=== PATIENT | female | born 1950 | race Two or more races ===

== ENCOUNTER 2023-04-25 02:10 | Inpatient (IN) | payer MEDICARE, OTHER ==
[~2023-04-25] VITALS: Ht 195.6 cm; Wt 50.0 kg
[2023-04-25] VITALS (14 sets, daily range): BP systolic 97–260; BP diastolic 70–156; PULSE 84–111; RESP 14–24; TEMP 98.7; O2SAT 93–100
[2023-04-25] MEDS ORDERED: hydrALAZINE HCL 20 MG/ML VL IV ONE (02:45)
[2023-04-25] MEDS ORDERED: LORazepam 2MG/ML-1ML VIAL ONE (03:23)
[2023-04-25] MEDS ORDERED: SUCCINYLCHOLINE CHLORIDE 20 MG/ML 10ML VIAL IV ONE ×2 (03:40→03:42)
[2023-04-25] MEDS ORDERED: ETOMIDATE (2MG/ML) 20ML VIAL IV ONE ×2 (03:40→03:41)
[2023-04-25] MEDS ORDERED: LORazepam 2MG/ML-1ML VIAL IV ONE (03:45)
[2023-04-25] MEDS ORDERED: PROPOFOL 100 ML IV ONE (03:47)
[2023-04-25] MEDS: PROPOFOL 100 ML IV SCH ×4 (04:00→23:23)
[2023-04-25 04:21] LABS: Hematocrit 35.4 % (36.0-46.0); Hemoglobin 11.7 g/dL (12.2-16.2); Mean Corpuscular Hemoglobin 30.5 pg (28.0-32.0); Mean Corpuscular Volume 92.6 fL (80.0-100.0); Red Blood Cells 3.83 10^6/uL (4.0-5.20); Red Cell Distribution Width 16.2 % (11.8-14.3); White Blood Cell 6.5 10^3/uL (4.4-10.8)
[2023-04-25 04:21] LABS: Base Excess -4.4 mmol/L (-2.0-2.0)
[2023-04-25 04:31] LABS: Basophils % (manual) 0 (0.0-2.0); Blast Cells 0; Metamyelocytes % 0; Myelocytes % 0; Promyelocytes % 0; Reactive Lymphocytes 0
[2023-04-25 04:33] LABS: Urine Bacteria NONE SEEN /hpf (None Seen); Urine Blood Negative /uL (Negative); Urine Clarity Clear (Clear); Urine Color Colorless (Yellow); Urine Protein, UAD TRACE (Negative); Urine Specific Gravity 1.008 (1.001-1.035); Urine Urobilinogen Normal (Negative); Urine WBC 1 /hpf (0 - 5); Urine pH 6.5 (5.0-8.0)
[2023-04-25 04:46] LABS: Albumin 3.3 g/dL (3.4-5.0); Calcium 8.4 mg/dL (8.5-10.1); Magnesium 1.9 mg/dL (1.6-2.6); Potassium 3.5 mmol/L (3.5-5.1)
[2023-04-25 04:51] LABS: Bilirubin, Total 0.2 mg/dL (0.2-1.0); Total Protein 6.6 g/dL (6.4-8.2)
[2023-04-25] MEDS ORDERED: MIDAZOLAM DRIP 50 mg/50mL 50 ML IV ONE (04:52)
[2023-04-25] MEDS: MIDAZOLAM DRIP 50 mg/50mL 50 ML IV SCH ×3 (05:10→23:24)
[2023-04-25 06:02] LABS: INR 0.96 (0.9-1.15); Partial Thromboplastin Time 24.5 SEC (24.5-34.5); Prothrombin Time 10.1 sec (9.3-11.8)
[2023-04-25 06:11] LABS: Band Neutrophils % (manual) 2; Eosinophils % (manual) 16 (0-7); Large Platelets FEW; Lymphocytes % (manual) 41 (10.0-50.0); Monocytes % (manual) 4 (0-12); Platelet Estimate Adequate
[2023-04-25] MEDS ORDERED: MORPHINE SULFATE INJ 2 MG/ml SYRG IV PRN (08:45)
[2023-04-25] MEDS ORDERED: ONDANSETRON HCL 4 MG/2 ML VIAL IV PRN (08:45)
[2023-04-25] MEDS ORDERED: NITROGLYCERIN 0.4 MG SL TAB SL PRN (08:45)
[2023-04-25] MEDS ORDERED: ENOXAPARIN SOD 30 MG/0.3 ML SYRINGE SC SCH (10:00)
[2023-04-25] MEDS ORDERED: ASPirin 81 mg TAB PO ONE (10:00)
[2023-04-25] MEDS: PANTOPRAZOLE 40 MG/10 ML VIAL INJ IV SCH (10:19)
[2023-04-25] MEDS: AZITHROMYCIN 500MG/ 250ML 250 ML IV SCH (10:19)
[2023-04-25] MEDS: IPRATROPIUM BROM 0.5 MG/2.5ML INH SOL NEB SCH ×2 (12:28→18:25)
[2023-04-25 20:37] LABS: Cholesterol 128 mg/dL (< 200); HDL Cholesterol 78 mg/dL (40-59); LDL Cholesterol 41 mg/dL (< 100); Triglycerides 109 mg/dL (< 150)
[2023-04-25 20:40] LABS: Folate (Folic Acid) 17.57 ng/mL (5.38-24)
[2023-04-25 21:26] LABS: Erythrocyte Sedimentation Rate 10 mm/hr (0-20)
[2023-04-26] VITALS (89 sets, daily range): BP systolic 73–183; BP diastolic 45–108; PULSE 92–130; RESP 14–27; TEMP 97.2–101.5; O2SAT 91–100
[2023-04-26] MEDS ORDERED: IOHEXOL 350 MG/ML 100ML IJ ONE (00:25)
[2023-04-26] MEDS: IPRATROPIUM BROM 0.5 MG/2.5ML INH SOL NEB SCH ×4 (00:35→18:43)
[2023-04-26] MEDS ORDERED: MET25T PO (01:21)
[2023-04-26] MEDS ORDERED: AMLO1TAB22 PO (01:21)
[2023-04-26] MEDS ORDERED: ALBU108A5 IN (01:21)
[2023-04-26] MEDS: ACETAMINOPHEN 325 MG TAB PO PRN ×3 (03:47→22:19)
[2023-04-26 04:04] LABS: Basophils # (auto) 0 10 ^3/uL (0-0.2); Basophils % (auto) 0.4 % (0.0-2.0); Eosinophils # (auto) 0.9 10 ^3/uL (0-0.8); Eosinophils % (auto) 14.4 % (0.0-7.0); Hematocrit 42.6 % (36.0-46.0); Lymphocytes # (auto) 1.3 10 ^3/uL (0.4-5.4); Lymphocytes % (auto) 20.5 % (10.0-50.0); Mean Corpuscular Hemoglobin 30.3 pg (28.0-32.0); Mean Corpuscular Hgb Conc. 32.7 g/dL (32.0-36.0); Mean Corpuscular Volume 92.6 fL (80.0-100.0); Monocytes # (auto) 0.4 10 ^3/uL (0-1.3); Monocytes % (auto) 6.5 % (0.0-12.0); Neutrophils # (auto) 3.7 10 ^3/uL (1.6-8.6); Neutrophils % (auto) 58.2 % (37.0-80.0); Nucleated Red Blood Cells % 0.1 %; Red Cell Distribution Width 16.3 % (11.8-14.3); White Blood Cell 6.4 10^3/uL (4.4-10.8)
[2023-04-26] MEDS: PROPOFOL 100 ML IV SCH (09:21)
[2023-04-26] MEDS: MIDAZOLAM DRIP 50 mg/50mL 50 ML IV SCH (09:22)
[2023-04-26] MEDS: hydrALAZINE HCL 20 MG/ML VL IV PRN ×2 (09:23→22:03)
[2023-04-26] MEDS ORDERED: METOPROLOL TARTRATE 1MG/1ML-5ML VIAL IV PRN ×2 (10:15)
[2023-04-26] MEDS: PANTOPRAZOLE 40 MG/10 ML VIAL INJ IV SCH (10:34)
[2023-04-26] MEDS: ENOXAPARIN SOD 60 MG/0.6 ML SYRINGE SC SCH (10:35)
[2023-04-26] MEDS: AZITHROMYCIN 500MG/ 250ML 250 ML IV SCH (10:35)
[2023-04-26 14:47] LABS: Anion Gap 8 (5-15); Blood Urea Nitrogen 22 mg/dL (7-18); Calcium 8.3 mg/dL (8.5-10.1); Carbon Dioxide 17 mmol/L (21-32); Chloride 110 mmol/L (98-107); Glucose 94 mg/dL (74-106); Potassium 4.9 mmol/L (3.5-5.1); Sodium 135 mmol/L (136-145)
[2023-04-26 14:54] LABS: Alanine Aminotransferase 32 U/L (13-56); Albumin 2.6 g/dL (3.4-5.0); Alkaline Phosphatase 83 U/L (45-117); Aspartate Aminotransferase 36 U/L (15-37); BUN/Creatinine Ratio 22.7 (10.0-20.0); Bilirubin, Total 0.5 mg/dL (0.2-1.0); Cholesterol 129 mg/dL (< 200); GFR African American 72 mL/min; GFR Non-African American 60 mL/min; HDL Cholesterol 80 mg/dL (40-59); LDL Cholesterol 46 mg/dL (< 100); Total Protein 6.9 g/dL (6.4-8.2); Triglycerides 85 mg/dL (< 150)
[2023-04-26] MEDS ORDERED: SODIUM BICARBONATE 50ML VIAL 100 ML in D5W 5% 1,000 ML IV SCH (23:30)
[2023-04-27] VITALS (111 sets, daily range): BP systolic 83–158; BP diastolic 52–95; PULSE 62–122; RESP 14–30; TEMP 97.3–100; O2SAT 96–100
[2023-04-27] MEDS: IPRATROPIUM BROM 0.5 MG/2.5ML INH SOL NEB SCH ×4 (00:21→18:25)
[2023-04-27] MEDS: PROPOFOL 100 ML IV SCH ×2 (06:24→18:16)
[2023-04-27 07:21] LABS: Base Excess -3.9 mmol/L (-2.0-2.0)
[2023-04-27 08:30] LABS: Basophils # (auto) 0.1 10 ^3/uL (0-0.2); Eosinophils # (auto) 0.5 10 ^3/uL (0-0.8); Eosinophils % (auto) 4.7 % (0.0-7.0); Hematocrit 37.9 % (36.0-46.0); Hemoglobin 12.4 g/dL (12.2-16.2); Lymphocytes # (auto) 1.7 10 ^3/uL (0.4-5.4); Lymphocytes % (auto) 16.6 % (10.0-50.0); Mean Corpuscular Hemoglobin 29.8 pg (28.0-32.0); Mean Corpuscular Hgb Conc. 32.7 g/dL (32.0-36.0); Mean Corpuscular Volume 91.1 fL (80.0-100.0); Monocytes # (auto) 0.7 10 ^3/uL (0-1.3); Monocytes % (auto) 7.1 % (0.0-12.0); Neutrophils # (auto) 7.1 10 ^3/uL (1.6-8.6); Neutrophils % (auto) 70.6 % (37.0-80.0); Nucleated Red Blood Cells % 0.2 %; Red Blood Cells 4.16 10^6/uL (4.0-5.20); Red Cell Distribution Width 15.8 % (11.8-14.3)
[2023-04-27 08:45] LABS: Albumin 2.7 g/dL (3.4-5.0); Calcium 8.4 mg/dL (8.5-10.1); Potassium 3.5 mmol/L (3.5-5.1)
[2023-04-27 08:49] LABS: BUN/Creatinine Ratio 26.5 (10.0-20.0); Bilirubin, Total 0.8 mg/dL (0.2-1.0); Total Protein 6.6 g/dL (6.4-8.2)
[2023-04-27] MEDS: PANTOPRAZOLE 40 MG/10 ML VIAL INJ IV SCH (09:56)
[2023-04-27] MEDS: ENOXAPARIN SOD 60 MG/0.6 ML SYRINGE SC SCH ×2 (09:57→21:46)
[2023-04-27] MEDS: AZITHROMYCIN 500MG/ 250ML 250 ML IV SCH (10:03)
[2023-04-27] MEDS: DexmedeTOMIDine 200 MCG in D5W 5% 48 ML IV SCH (12:53)
[2023-04-28] VITALS (100 sets, daily range): BP systolic 84–186; BP diastolic 49–118; PULSE 52–116; RESP 14–42; TEMP 97.2–100.8; O2SAT 91–100
[2023-04-28] MEDS: IPRATROPIUM BROM 0.5 MG/2.5ML INH SOL NEB SCH ×2 (00:10→18:43)
[2023-04-28] MEDS: DexmedeTOMIDine 200 MCG in D5W 5% 48 ML IV SCH (00:57)
[2023-04-28 04:13] LABS: Basophils # (auto) 0 10 ^3/uL (0-0.2); Basophils % (auto) 0.5 % (0.0-2.0); Eosinophils % (auto) 12.9 % (0.0-7.0); Hematocrit 34.2 % (36.0-46.0); Hemoglobin 11.1 g/dL (12.2-16.2); Lymphocytes # (auto) 1.7 10 ^3/uL (0.4-5.4); Lymphocytes % (auto) 22.6 % (10.0-50.0); Mean Corpuscular Hemoglobin 30.5 pg (28.0-32.0); Mean Corpuscular Hgb Conc. 32.5 g/dL (32.0-36.0); Mean Corpuscular Volume 93.8 fL (80.0-100.0); Monocytes # (auto) 0.7 10 ^3/uL (0-1.3); Monocytes % (auto) 8.7 % (0.0-12.0); Neutrophils # (auto) 4.2 10 ^3/uL (1.6-8.6); Neutrophils % (auto) 55.3 % (37.0-80.0); Nucleated Red Blood Cells % 0.1 %; Red Blood Cells 3.64 10^6/uL (4.0-5.20); Red Cell Distribution Width 15.7 % (11.8-14.3); White Blood Cell 7.6 10^3/uL (4.4-10.8)
[2023-04-28 04:27] LABS: Potassium 3.4 mmol/L (3.5-5.1)
[2023-04-28 04:37] LABS: Albumin 2.3 g/dL (3.4-5.0); BUN/Creatinine Ratio 27.8 (10.0-20.0); Bilirubin, Total 0.4 mg/dL (0.2-1.0); Calcium 8.2 mg/dL (8.5-10.1); Total Protein 5.9 g/dL (6.4-8.2)
[2023-04-28] MEDS: MIDAZOLAM DRIP 50 mg/50mL 50 ML IV SCH (05:00)
[2023-04-28 07:27] LABS: Base Excess -3.4 mmol/L (-2.0-2.0)
[2023-04-28] MEDS: hydrALAZINE HCL 20 MG/ML VL IV PRN (09:21)
[2023-04-28] MEDS: PANTOPRAZOLE 40 MG/10 ML VIAL INJ IV SCH (09:36)
[2023-04-28] MEDS: AZITHROMYCIN 500MG/ 250ML 250 ML IV SCH (09:36)
[2023-04-28] MEDS: ENOXAPARIN SOD 60 MG/0.6 ML SYRINGE SC SCH ×2 (09:36→20:32)
[2023-04-28] MEDS ORDERED: METOPROLOL TARTRATE 25 MG TAB PO SCH (12:15)
[2023-04-28] MEDS ORDERED: amLODIPine BESYLATE 5 MG TAB PO SCH (12:15)
[2023-04-28] MEDS ORDERED: FOLI-119 PO (13:25)
[2023-04-28] MEDS ORDERED: MIRT1TAB38 PO (13:25)
[2023-04-28] MEDS ORDERED: SERT-160 PO (13:25)
[2023-04-28] MEDS ORDERED: POTASSIUM EFFERVESENT TAB 25 MEQ GT ONE (13:30)
[2023-04-28] MEDS ORDERED: CLINIMIX PER PHARMACY 0 ML IV SCH (13:30)
[2023-04-28 13:58] LABS: Magnesium 2.2 mg/dL (1.6-2.6); Phosphorus 3.7 mg/dL (2.5-4.90)
[2023-04-28] MEDS ORDERED: DEXTROSE (50%) 50ML SYRG IV SCH (14:00)
[2023-04-28] MEDS: SODIUM CHLORIDE 0.9% 1,000 ML IV SCH (14:20)
[2023-04-28 14:55] LABS: Base Excess -4.5 mmol/L (-2.0-2.0)
[2023-04-28] MEDS: InsuLIN REG 1unit/0.01ml Soln (100units/ml) SC SCH (18:00)
[2023-04-28] MEDS: ACCU-CHEK COMFORT CURVE STRIP VI SCH (18:28)
[2023-04-28] MEDS: AMINO ACID INFUSION IN D10W 1,000 ML IV SCH (20:13)
[2023-04-28] MEDS: ACETAMINOPHEN 325 MG TAB PO PRN (20:22)
[2023-04-28] MEDS: METOPROLOL TARTRATE 25 MG TAB PO SCH (20:25)
[2023-04-28] MEDS: MIRTAZAPINE 30 MG TAB PO SCH (20:25)
[2023-04-29] VITALS (63 sets, daily range): BP systolic 124–212; BP diastolic 64–108; PULSE 83–102; RESP 13–44; TEMP 97.6–100; O2SAT 91–100
[2023-04-29] MEDS: ACCU-CHEK COMFORT CURVE STRIP VI SCH ×4 (00:01→17:04)
[2023-04-29] MEDS: MIDAZOLAM DRIP 50 mg/50mL 50 ML IV SCH (00:42)
[2023-04-29] MEDS: PROPOFOL 100 ML IV SCH (00:42)
[2023-04-29] MEDS: IPRATROPIUM BROM 0.5 MG/2.5ML INH SOL NEB SCH ×4 (00:53→18:00)
[2023-04-29] MEDS: LORazepam 2MG/ML-1ML VIAL IV PRN ×4 (01:25→20:28)
[2023-04-29] MEDS: MORPHINE SULFATE INJ 2 MG/ml SYRG IV PRN (01:41)
[2023-04-29] MEDS ORDERED: LORazepam 2MG/ML-1ML VIAL ONE (02:01)
[2023-04-29] MEDS: InsuLIN REG 1unit/0.01ml Soln (100units/ml) SC SCH ×4 (06:00→17:09)
[2023-04-29 06:45] LABS: Basophils # (auto) 0.1 10 ^3/uL (0-0.2); Basophils % (auto) 0.9 % (0.0-2.0); Eosinophils # (auto) 1.2 10 ^3/uL (0-0.8); Eosinophils % (auto) 13.7 % (0.0-7.0); Hematocrit 33.9 % (36.0-46.0); Hemoglobin 11.2 g/dL (12.2-16.2); Lymphocytes # (auto) 2.1 10 ^3/uL (0.4-5.4); Mean Corpuscular Hemoglobin 30.2 pg (28.0-32.0); Mean Corpuscular Volume 91.7 fL (80.0-100.0); Monocytes # (auto) 0.9 10 ^3/uL (0-1.3); Monocytes % (auto) 10.7 % (0.0-12.0); Neutrophils # (auto) 4.3 10 ^3/uL (1.6-8.6); Neutrophils % (auto) 49.7 % (37.0-80.0); Nucleated Red Blood Cells % 0.1 %; Red Cell Distribution Width 15.4 % (11.8-14.3); White Blood Cell 8.6 10^3/uL (4.4-10.8)
[2023-04-29] MEDS: DexmedeTOMIDine 200 MCG in D5W 5% 48 ML IV SCH (08:13)
[2023-04-29] MEDS: SODIUM CHLORIDE 0.9% 1,000 ML IV SCH (09:30)
[2023-04-29] MEDS: ENOXAPARIN SOD 60 MG/0.6 ML SYRINGE SC SCH ×2 (09:38→21:02)
[2023-04-29] MEDS: LABETALOL HCL 5 MG/ML 4ML SYRINGE IV PRN ×2 (09:38→16:10)
[2023-04-29] MEDS: PANTOPRAZOLE 40 MG/10 ML VIAL INJ IV SCH (09:38)
[2023-04-29] MEDS: AZITHROMYCIN 500MG/ 250ML 250 ML IV SCH (09:42)
[2023-04-29] MEDS: SERTRALINE HCL 50 MG TAB PO SCH (10:00)
[2023-04-29] MEDS: amLODIPine BESYLATE 5 MG TAB PO SCH (10:00)
[2023-04-29] MEDS: METOPROLOL TARTRATE 25 MG TAB PO SCH ×2 (10:00→21:02)
[2023-04-29] MEDS: FOLIC ACID 1 MG TAB PO SCH (10:00)
[2023-04-29] MEDS ORDERED: HALOPERIDOL LACTATE 5 MG/ML INJ VIAL IV PRN (11:00)
[2023-04-29 16:21] LABS: Calcium 8.7 mg/dL (8.5-10.1)
[2023-04-29 16:25] LABS: BUN/Creatinine Ratio 26.5 (10.0-20.0); Bilirubin, Total 0.6 mg/dL (0.2-1.0); Phosphorus 1.9 mg/dL (2.5-4.90); Total Protein 7.1 g/dL (6.4-8.2)
[2023-04-29 16:39] LABS: Potassium 2.9 mmol/L (3.5-5.1)
[2023-04-29] MEDS ORDERED: POTASSIUM CHL 20MEQ/100ML 100 ML IV ONE (16:45)
[2023-04-29] MEDS ORDERED: POTASSIUM PHOSPHATE 44 MEQ in D5W 5% 250 ML IV ONE (18:45)
[2023-04-29] MEDS: AMINO ACID INFUSION IN D10W 1,000 ML IV SCH (20:28)
[2023-04-29] MEDS: MIRTAZAPINE 30 MG TAB PO SCH (21:02)
[2023-04-30] VITALS (53 sets, daily range): BP systolic 115–194; BP diastolic 36–151; PULSE 77–97; RESP 15–42; TEMP 97.9–100.4; O2SAT 96–100
[2023-04-30] MEDS: ACCU-CHEK COMFORT CURVE STRIP VI SCH ×4 (00:12→18:40)
[2023-04-30] MEDS: LABETALOL HCL 5 MG/ML 4ML SYRINGE IV PRN ×3 (00:17→20:18)
[2023-04-30] MEDS: PROPOFOL 100 ML IV SCH (04:00)
[2023-04-30] MEDS: MIDAZOLAM DRIP 50 mg/50mL 50 ML IV SCH (05:00)
[2023-04-30] MEDS: InsuLIN REG 1unit/0.01ml Soln (100units/ml) SC SCH ×4 (06:00→18:40)
[2023-04-30] MEDS: IPRATROPIUM BROM 0.5 MG/2.5ML INH SOL NEB SCH ×5 (06:22→23:54)
[2023-04-30] MEDS: DexmedeTOMIDine 200 MCG in D5W 5% 48 ML IV SCH (06:27)
[2023-04-30] MEDS: SODIUM CHLORIDE 0.9% 1,000 ML IV SCH (06:41)
[2023-04-30 08:01] LABS: Calcium 8.7 mg/dL (8.5-10.1); Potassium 4.5 mmol/L (3.5-5.1)
[2023-04-30] MEDS: METOPROLOL TARTRATE 25 MG TAB PO SCH ×2 (10:00→21:40)
[2023-04-30] MEDS: amLODIPine BESYLATE 5 MG TAB PO SCH (10:00)
[2023-04-30] MEDS: SERTRALINE HCL 50 MG TAB PO SCH (10:00)
[2023-04-30] MEDS: FOLIC ACID 1 MG TAB PO SCH (10:00)
[2023-04-30] MEDS: AZITHROMYCIN 500MG/ 250ML 250 ML IV SCH (10:15)
[2023-04-30] MEDS: ENOXAPARIN SOD 60 MG/0.6 ML SYRINGE SC SCH ×2 (10:16→22:32)
[2023-04-30] MEDS: PANTOPRAZOLE 40 MG/10 ML VIAL INJ IV SCH (10:16)
[2023-04-30] MEDS: LORazepam 2MG/ML-1ML VIAL IV PRN (13:09)
[2023-04-30] MEDS: MORPHINE SULFATE INJ 2 MG/ml SYRG IV PRN ×2 (16:24→22:33)
[2023-04-30 19:17] LABS: Magnesium 1.8 mg/dL (1.6-2.6); Phosphorus 3.1 mg/dL (2.5-4.90)
[2023-04-30 19:19] LABS: Hematocrit 34.8 % (36.0-46.0); Hemoglobin 11.3 g/dL (12.2-16.2); Mean Corpuscular Hemoglobin 29.5 pg (28.0-32.0); Mean Corpuscular Hgb Conc. 32.4 g/dL (32.0-36.0); Mean Corpuscular Volume 91.2 fL (80.0-100.0); Red Blood Cells 3.82 10^6/uL (4.0-5.20); Red Cell Distribution Width 15.2 % (11.8-14.3); White Blood Cell 6.7 10^3/uL (4.4-10.8)
[2023-04-30 19:22] LABS: Band Neutrophils % (manual) 0; Basophils % (manual) 0 (0.0-2.0); Blast Cells 0; Metamyelocytes % 0; Myelocytes % 0; Promyelocytes % 0; Reactive Lymphocytes 0
[2023-04-30 19:47] LABS: Anisocytosis Slight; Eosinophils % (manual) 18 (0-7); Lymphocytes % (manual) 25 (10.0-50.0); Monocytes % (manual) 13 (0-12); Platelet Estimate Adequate
[2023-04-30] MEDS: AMINO ACID INFUSION IN D10W 1,000 ML IV SCH (20:18)
[2023-04-30] MEDS: MIRTAZAPINE 30 MG TAB PO SCH (21:40)
[2023-05-01] VITALS (12 sets, daily range): BP systolic 96–162; BP diastolic 52–72; PULSE 75–97; RESP 15–22; TEMP 98–100.6; O2SAT 95–100
[2023-05-01] MEDS: ACCU-CHEK COMFORT CURVE STRIP VI SCH ×5 (00:13→23:44)
[2023-05-01] MEDS: LABETALOL HCL 5 MG/ML 4ML SYRINGE IV PRN (00:31)
[2023-05-01] MEDS: SODIUM CHLORIDE 0.9% 1,000 ML IV SCH ×2 (01:35→21:02)
[2023-05-01] MEDS: InsuLIN REG 1unit/0.01ml Soln (100units/ml) SC SCH ×5 (06:00→23:44)
[2023-05-01] MEDS: IPRATROPIUM BROM 0.5 MG/2.5ML INH SOL NEB SCH ×3 (06:00→18:00)
[2023-05-01 09:36] LABS: Hematocrit 34.1 % (36.0-46.0); Mean Corpuscular Hemoglobin 29.8 pg (28.0-32.0); Mean Corpuscular Hgb Conc. 32.1 g/dL (32.0-36.0); Mean Corpuscular Volume 92.7 fL (80.0-100.0); Red Blood Cells 3.69 10^6/uL (4.0-5.20); Red Cell Distribution Width 15.4 % (11.8-14.3); White Blood Cell 7.2 10^3/uL (4.4-10.8)
[2023-05-01 09:45] LABS: Basophils % (manual) 0 (0.0-2.0); Blast Cells 0; Metamyelocytes % 0; Myelocytes % 0; Promyelocytes % 0; Reactive Lymphocytes 0
[2023-05-01] MEDS: ACETAMINOPHEN 325 MG TAB PO PRN (10:00)
[2023-05-01] MEDS: METOPROLOL TARTRATE 25 MG TAB PO SCH ×2 (10:01→22:07)
[2023-05-01] MEDS: FOLIC ACID 1 MG TAB PO SCH (10:01)
[2023-05-01] MEDS: amLODIPine BESYLATE 5 MG TAB PO SCH (10:01)
[2023-05-01 10:03] LABS: Albumin 2.4 g/dL (3.4-5.0); Calcium 8.6 mg/dL (8.5-10.1); Magnesium 1.9 mg/dL (1.6-2.6)
[2023-05-01] MEDS: AZITHROMYCIN 500MG/ 250ML 250 ML IV SCH (10:06)
[2023-05-01 10:07] LABS: BUN/Creatinine Ratio 26.7 (10.0-20.0); Bilirubin, Total 0.3 mg/dL (0.2-1.0); Phosphorus 2.5 mg/dL (2.5-4.90); Total Protein 5.9 g/dL (6.4-8.2)
[2023-05-01] MEDS: PANTOPRAZOLE 40 MG/10 ML VIAL INJ IV SCH (10:07)
[2023-05-01] MEDS: ENOXAPARIN SOD 60 MG/0.6 ML SYRINGE SC SCH ×2 (10:07→22:07)
[2023-05-01] MEDS: SERTRALINE HCL 50 MG TAB PO SCH (10:24)
[2023-05-01 12:03] LABS: Band Neutrophils % (manual) 1; Lymphocytes % (manual) 36 (10.0-50.0); Monocytes % (manual) 8 (0-12)
[2023-05-01 12:04] LABS: Anisocytosis Slight; Eosinophils % (manual) 20 (0-7); Ovalocytes FEW; Platelet Estimate Adequate
[2023-05-01] MEDS: AMINO ACID INFUSION IN D10W 1,000 ML IV SCH (20:04)
[2023-05-01] MEDS: HYDROcodone-ACET 5/325MG TAB PO PRN (21:00)
[2023-05-01] MEDS: MIRTAZAPINE 30 MG TAB PO SCH (22:07)
[2023-05-02] VITALS (14 sets, daily range): BP systolic 108–151; BP diastolic 63–82; PULSE 76–110; RESP 16–20; TEMP 97.9–98.3; O2SAT 94–100
[2023-05-02] MEDS: IPRATROPIUM BROM 0.5 MG/2.5ML INH SOL NEB SCH ×4 (00:43→19:21)
[2023-05-02] MEDS: InsuLIN REG 1unit/0.01ml Soln (100units/ml) SC SCH ×3 (06:00→17:18)
[2023-05-02] MEDS: ACCU-CHEK COMFORT CURVE STRIP VI SCH ×3 (06:05→17:19)
[2023-05-02] MEDS: ENOXAPARIN SOD 60 MG/0.6 ML SYRINGE SC SCH ×2 (09:50→21:26)
[2023-05-02] MEDS: AZITHROMYCIN 500MG/ 250ML 250 ML IV SCH (09:50)
[2023-05-02] MEDS: PANTOPRAZOLE 40 MG/10 ML VIAL INJ IV SCH (09:50)
[2023-05-02] MEDS: METOPROLOL TARTRATE 25 MG TAB PO SCH ×3 (09:56→23:00)
[2023-05-02] MEDS: FOLIC ACID 1 MG TAB PO SCH (09:56)
[2023-05-02] MEDS: amLODIPine BESYLATE 5 MG TAB PO SCH (09:57)
[2023-05-02] MEDS: SERTRALINE HCL 50 MG TAB PO SCH (09:57)
[2023-05-02 10:51] LABS: Albumin 2.2 g/dL (3.4-5.0); Calcium 8.4 mg/dL (8.5-10.1); Magnesium 1.8 mg/dL (1.6-2.6); Potassium 3.8 mmol/L (3.5-5.1)
[2023-05-02 10:55] LABS: BUN/Creatinine Ratio 30.4 (10.0-20.0); Bilirubin, Total 0.2 mg/dL (0.2-1.0); Phosphorus 2.5 mg/dL (2.5-4.90); Total Protein 5.3 g/dL (6.4-8.2)
[2023-05-02] MEDS ORDERED: HALOPERIDOL LACTATE 5 MG/ML INJ VIAL IM PRN (14:30)
[2023-05-02] MEDS: SODIUM CHLORIDE 0.9% 1,000 ML IV SCH (17:18)
[2023-05-02] MEDS: QUEtiapine FUMARATE 25 MG TAB PO SCH (21:19)
[2023-05-02] MEDS: HYDROcodone-ACET 5/325MG TAB PO PRN (21:19)
[2023-05-02] MEDS: MIRTAZAPINE 30 MG TAB PO SCH (21:21)
[2023-05-03] VITALS (13 sets, daily range): BP systolic 100–132; BP diastolic 43–69; PULSE 79–90; RESP 16–20; TEMP 98.2–98.6; O2SAT 94–100
[2023-05-03] MEDS: IPRATROPIUM BROM 0.5 MG/2.5ML INH SOL NEB SCH ×4 (00:48→19:01)
[2023-05-03] MEDS: QUEtiapine FUMARATE 25 MG TAB PO SCH ×2 (09:13→21:38)
[2023-05-03] MEDS: AZITHROMYCIN 250 MG TAB PO SCH (09:13)
[2023-05-03] MEDS: SERTRALINE HCL 50 MG TAB PO SCH (09:13)
[2023-05-03] MEDS: FOLIC ACID 1 MG TAB PO SCH (09:13)
[2023-05-03] MEDS: amLODIPine BESYLATE 5 MG TAB PO SCH (09:14)
[2023-05-03] MEDS: ENOXAPARIN SOD 60 MG/0.6 ML SYRINGE SC SCH ×2 (09:24→21:39)
[2023-05-03] MEDS: METOPROLOL TARTRATE 25 MG TAB PO SCH ×2 (09:32→21:39)
[2023-05-03] MEDS: Glucerna Carbsteady SHAKE Vanilla 8oz PO SCH ×3 (09:33→18:22)
[2023-05-03] MEDS: PANTOPRAZOLE 40 MG/10 ML VIAL INJ IV SCH (09:33)
[2023-05-03] MEDS: SODIUM CHLORIDE 0.9% 1,000 ML IV SCH (13:30)
[2023-05-03 16:30] LABS: Albumin 2.2 g/dL (3.4-5.0); BUN/Creatinine Ratio 22.9 (10.0-20.0); Phosphorus 2.7 mg/dL (2.5-4.90); Potassium 4.3 mmol/L (3.5-5.1)
[2023-05-03] MEDS: MIRTAZAPINE 30 MG TAB PO SCH (21:38)
[2023-05-04] VITALS (10 sets, daily range): BP systolic 104–141; BP diastolic 53–67; PULSE 60–97; RESP 14–20; TEMP 98–98.6; O2SAT 91–100
[2023-05-04] MEDS: IPRATROPIUM BROM 0.5 MG/2.5ML INH SOL NEB SCH ×4 (00:28→12:47)
[2023-05-04] MEDS: Glucerna Carbsteady SHAKE Vanilla 8oz PO SCH ×2 (08:00→12:00)
[2023-05-04] MEDS: SODIUM CHLORIDE 0.9% 1,000 ML IV SCH (09:30)
[2023-05-04] MEDS: amLODIPine BESYLATE 5 MG TAB PO SCH (10:00)
[2023-05-04] MEDS: METOPROLOL TARTRATE 25 MG TAB PO SCH (10:00)
[2023-05-04] MEDS: PANTOPRAZOLE 40 MG/10 ML VIAL INJ IV SCH (10:47)
[2023-05-04] MEDS: ENOXAPARIN SOD 60 MG/0.6 ML SYRINGE SC SCH (10:47)
[2023-05-04] MEDS: SERTRALINE HCL 50 MG TAB PO SCH (10:48)
[2023-05-04] MEDS: QUEtiapine FUMARATE 25 MG TAB PO SCH (10:48)
[2023-05-04] MEDS: FOLIC ACID 1 MG TAB PO SCH (10:48)
[2023-05-04] MEDS: AZITHROMYCIN 250 MG TAB PO SCH (10:48)
[2023-05-04] MEDS ORDERED: APIX5TAB PO (12:25)
== END 2023-05-04 16:45 | disposition home or self-care (01) | DRG 133 ==
LOC: ER 02:10 → EDBD 02:10 → TELE 08:37 → ICU WEST 23:44 → DOU IN ICU 04-29 18:00 → TELE-EAST 05-01 00:58
PROVIDERS: ADMIT Nurse Practitioner; ATTEND Nurse Practitioner
PROC: 5A1945Z Respiratory Ventilation, 24-96 Consecutive Hours (ICD-10-PCS; principal; 2023-04-25)
PROC: 0BH17EZ Insertion of Endotracheal Airway into Trachea, Via Natural or Artificial Opening (ICD-10-PCS; 2023-04-25)
PROC: 05H933Z Insertion of Infusion Device into Right Brachial Vein, Percutaneous Approach (ICD-10-PCS; 2023-04-27)
PROC: B54MZZA Ultrasonography of Right Upper Extremity Veins, Guidance (ICD-10-PCS; 2023-04-27)
DX: J96.01 Acute respiratory failure with hypoxia (principal); N17.0 Acute kidney failure with tubular necrosis; G93.41 Metabolic encephalopathy; I82.431 Acute embolism and thrombosis of right popliteal vein; G93.1 Anoxic brain damage, not elsewhere classified; E44.1 Mild protein-calorie malnutrition; I16.1 Hypertensive emergency; I12.9 Hypertensive chronic kidney disease with stage 1 through stage 4 chronic kidney disease, or unspecified chronic kidney disease; E87.20 Acidosis, unspecified; N18.9 Chronic kidney disease, unspecified; E11.22 Type 2 diabetes mellitus with diabetic chronic kidney disease; E11.51 Type 2 diabetes mellitus with diabetic peripheral angiopathy without gangrene; R55 Syncope and collapse; F03.90 Unspecified dementia, unspecified severity, without behavioral disturbance, psychotic disturbance, mood disturbance, and anxiety; Z83.3 Family history of diabetes mellitus; Z82.49 Family history of ischemic heart disease and other diseases of the circulatory system; Z82.3 Family history of stroke; Z79.899 Other long term (current) drug therapy; Z79.82 Long term (current) use of aspirin; Z86.718 Personal history of other venous thrombosis and embolism; Z86.73 Personal history of transient ischemic attack (TIA), and cerebral infarction without residual deficits; Z68.1 Body mass index [BMI] 19.9 or less, adult
CPT/HCPCS: 31500; 36415; 36600; 70450; 70551; 71045; 71250; 71275; 72125; 74176; 80048; 80053; 80061; 80069; 81001; 82607; 82746; 82805; 82962; 83036; 83735; 83880; 84100; 84443; 84484; 85007; 85025; 85027; 85379; 85610; 85652; 85730; 87040; 87070; 87081; 87086; 87205; 93005; 93306; 93886; 93925; 93970; 94002; 94003; 94640; 95819; 96374; 96375; C9113; G0378; J0330; J1815; J2250; J2704; J3480; J3490; J7060